=== PATIENT | female | born 1930 | race Caucasian/White ===

== ENCOUNTER 2018-05-21 14:03 | Inpatient (IN) ==
[2018-05-21] MEDS ORDERED: ZOFRAN IV PRN (16:22)
[2018-05-21] MEDS ORDERED: ZOSYN 3.375 GM in NS 50 ML IV SCH (16:30)
[2018-05-21] MEDS ORDERED: VANCOMYCIN IV PER PHARMACY MISC SCH (16:30)
[2018-05-21 17:25] LABS: AGAP 14; CHLORIDE 106 mmol/L (98-107); GLUCOSE 127 mg/dL (70-104); POTASSIUM 3.6 mmol/L (3.5-5.1); SODIUM 142 mmol/L (136-145); TCO2 22 mmol/L (25-35)
[2018-05-21 17:26] LABS: ALB/GLOB RATIO 0.9; ALBUMIN 2.7 g/dL (3.5-5.0); ALKALINE PHOSPHATASE 109 U/L (32-104); BUN 15 mg/dL (8-22); CALCIUM 8.3 mg/dL (8.8-10.2); COSMO 286; CREATININE 0.7 mg/dL (0.5-0.9); ESTIMATED GFR > 60; GOT 21 U/L (10-30); GPT 8 U/L (10-36); MAGNESIUM 1.8 mg/dL (1.5-2.7); TOTAL BILIRUBIN 0.24 mg/dL (0.20-1.00); TOTAL PROTEIN 5.7 g/dL (6.3-8.3)
[2018-05-21 17:53] LABS: BASO# 0.01 X1000 (0.0-0.2); BASO% 0.1 % (0.0-0.8); EOS# 0.02 X1000 (0.0-0.7); EOS% 0.1 % (0.0-10.0); HEMATOCRIT 30.3 % (37.0-47.0); HEMOGLOBIN 9.5 g/dL (12.0-16.0); LYMPH# 0.93 X1000 (1.2-3.4); LYMPH% 5.9 % (20.5-51.1); MCH 31.5 PG (27-31); MCHC 31.4 g/dL (33-37); MCV 100.3 FL (81-99); MONO# 1.49 X1000 (0.11-0.59); MONO% 9.4 % (1.7-9.3); MPV 9.1 FL (7.4-10.4); NEUT# 13.35 X1000 (1.4-6.5); NEUT% 84.5 % (42.2-75.2); PLT 270 X1000 (130-400); RBC 3.02 XMIL (4.2-5.4); RDW 13.4 % (11.5-14.5)
[2018-05-21 18:07] LABS: INR 1.04; PROTIME 14.5 Seconds (11.0-16.0)
[2018-05-21 18:08] LABS: PTT 31.9 Seconds (22.3-41.8)
--- NOTE | 2018-05-21 18:19 | CONSULTATION ---
DATE OF CONSULTATION: 05/21/2018 HISTORY: Ms. Darden is seen for left knee pain. She was seen by my partner Dr. Novoa in the office Saturday. She is admitted to the hospital for pneumonia currently by the hospitalist. We were consulted for possible septic knee. She complains of some pain and swelling over the left knee. PHYSICAL EXAMINATION: Exam reveals a 2+ effusion over the left knee. There is some inflammation, but there is no obvious redness or warmth. She has some pain on passive motion. She is able to perform a straight leg raise. Compartments are all soft. X-rays in office records were reviewed, which showed significant DJD about the knee. She did have cultures as well as the cell count of 42,000 from the knee with positive calcium pyrophosphate crystals or pseudogout crystals. Her initial Gram stain showed no activity of any kind of organism. However, one of the cultures is showing possible gram-positive organism, which could be a contaminant versus real. Dr. Novoa withdrew roughly 60 mL of nonpurulent fluid from the knee however. ASSESSMENT: Pseudogout, left knee. PLAN: I have discussed with the patient the culture results in that she definitely has pseudogout with inflammation. The culture may be a contaminant versus real. She is currently admitted for antibiotics regarding pneumonia, which would cover her knee as well. We will check her again tomorrow, and if there is ongoing question we will consider repeat aspiration of the knee. Given the nature of the fluid, I think it is probably more likely that it was a flare-up of pseudogout. cc: Tomy Dugan MD
[2018-05-21 18:52] LABS: BANDS 1 % (0-1); LYMPHS 11 % (21-51); MONO 6 % (1-9); SEGS 82 % (42-75)
[2018-05-21] MEDS ORDERED: VANCOMYCIN 1,500 MG in NS 250 ML IV ONE (19:00)
--- NOTE | 2018-05-21 19:07 | HISTORY AND PHYSICAL ---
Patient is a direct admit from Dr. Milagro Tolentino. CHIEF COMPLAINT: Right lower lobe pneumonia, left knee questionable septic arthritis. HISTORY OF PRESENT ILLNESS: Ms. Darden is an 87-year-old female who carries a past medical history of anxiety disorder, cardiac dysrhythmia status post pacemaker, essential hypertension, GERD, who has been having subjective fever and chills since last . She went to see her PCP for complaints of left knee pain. She had been not able to walk on her knee since Saturday. She was [facility] to [facility] for evaluations for concern for septic arthritis. She was seen by Dr. Novoa, who removed fluid from her knee. Labs at Dr. Milagro Tolentino;s office showed a white count of 2000 and elevated sedimentation rate. They called and spoke with Dr. Novoa who was leaning more toward a pseudogout, but not septic arthritis. Secondary to her elevated white count, they sent her for chest x-ray that shows a right basilar infiltrate. She was placed on p.o. Levaquin. The daughter was called today to let them know that there was something growing in her cultures. It is showing gram-positive cocci. She did report a right upper quadrant pain that was brief in nature and only occurred one time. It only lasted for a few seconds, and it was resolved and has not return. She denies any shortness of breath. No nausea/ vomiting, diarrhea, or chest pain. No urinary frequency. No dysuria. She did complain of some slight feelings of constipation secondary to not really having an appetite over the last few days and not being able to get up and be mobile. She was seen by Dr. Dugan. They may drain her knee again tomorrow, and they will continue to follow her cultures. We will continue to cover her for gram positives and gram negatives and change antibiotics accordingly. REVIEW OF SYSTEMS: A 14 point review of systems was completely negative except for those mentioned in HPI. PAST MEDICAL HISTORY: Anxiety, cardiac dysrhythmia status post pacemaker, essential hypertension, GERD. PAST SURGICAL HISTORY: A mole removed a few weeks ago, recent drain to her left knee on Saturday with Dr. Novoa. SOCIAL HISTORY: She lives alone in [place]. She is cared for by her daughter who lives close by. She has a son who lives in [place]. She is retired from work. She recently lost her ; she is a . She gets around with a cane. She has a lift chair at home. No alcohol or illicit drug use. FAMILY HISTORY: Mother from pneumonia. She also had cancer. Renal disease in her father. Diabetes in her sister. A brother with prostate cancer. ALLERGIES: No known drug allergies. HOME MEDICATIONS: 1. Levofloxacin 500 mg p.o. daily which we will hold. 2. Tylenol Arthritis 650 mg p.o. b.i.d. 3. Celebrex 200 mg p.o. daily. 4. Lorazepam 0.5 mg p.o. q.p.m. 5. Toprol-XL 25 mg p.o. daily. 6. Centrum Silver 1 each p.o. daily. 7. Prilosec 10 mg p.o. daily. PHYSICAL EXAMINATION: VITAL SIGNS: Temperature is 98 degrees, heart rate 77, respirations 18, blood pressure 153/79, O2 is 96% on room air. GENERAL: Ms. Darden is a pleasant 87-year-old female, lying in the bed in no acute distress. HEENT: Atraumatic, normocephalic. PERRL. NECK: Supple. Trachea midline. CARDIOVASCULAR: S1, S2 appreciated. No murmurs, gallops, rubs noted. RESPIRATORY: Lung sounds clear. Chest excursion. Nonlabored breathing. No rhonchi, rales, or crackles heard. GASTROINTESTINAL: Soft, nontender, nondistended. Positive bowel sounds 4 quadrants. NEUROLOGICAL: No focal deficits were noted. SKIN: Appears to be warm, dry, and intact. She does have some swelling without redness to her left knee. DIAGNOSTIC STUDIES: Diagnostics and laboratory data pending from our facility. She does have a chest x-ray that was done yesterday that showed a right basilar infiltrate. Latest laboratory data from 05/19/2018 shows a sodium 140, potassium 3.7, BUN of 33, creatinine of 0.7. Uric acid of 9.1. CBC showed a white count of 20, hemoglobin 9, hematocrit 31, platelet count of 224. We will repeat her labs and diagnostics. C-reactive protein quantifier was 234.10. ASSESSMENT AND PLAN: 1. Right basilar infiltrate. We will continue with IV antibiotics, bronchodilators, aggressive pulmonary toilet. Repeat chest x-ray in the a.m. 2. Septic arthritis versus pseudogout. However, cultures are coming back [facility] from where she had it drained on Saturday. We will go ahead and cover for gram-negative and gram- positive. Change antibiotics accordingly. We have consulted Dr. Dugan. He seen and evaluated the patient. They may recommend draining tomorrow, and we will continue to follow. 3. Essential hypertension. 4. Cardiac dysrhythmia status post pacemaker. We will continue to monitor on telemetry. 5. Generalized anxiety disorder. We will continue her home Ativan. 6. Arthritis pain. We will continue her Tylenol for her arthritis pain. Further recommendations to follow physician evaluation, laboratory, and diagnostic data. Dictated by MT Guerra for Jesse Asher MD Patient seen and examined by me face to face, all the laboratory, vitals signs and images were reviewed, patient presented to the emergency department with chills and left knee pain, there is a positive knee culture and blood culture, she is not complaining of shortness of breath or cough even though she has a lung infiltrate , she has been placed on antibiotics, ID department and orthopedic surgery department will be consulted, I agree with the PLEATER's assessment and plan, Jesse Araujo MD. cc: MD Tracey Dowd MD Lindsay Smith Omar J. Sosa-Chirinos, MD [facility]
[2018-05-21] MEDS: ATIVAN PO SCH (21:14)
[2018-05-21] MEDS: TYLENOL ARTHRITIS PO SCH (21:14)
[2018-05-21] MEDS: COLCRYS PO SCH (21:14)
[2018-05-22] MEDS: PRILOSEC PO SCH (06:27)
[2018-05-22 06:35] LABS: BASO# 0.02 X1000 (0.0-0.2); BASO% 0.1 % (0.0-0.8); EOS# 0.02 X1000 (0.0-0.7); EOS% 0.1 % (0.0-10.0); HEMATOCRIT 28.4 % (37.0-47.0); IMM GRAN% 0.7 % (0.0-0.5); LYMPH# 0.83 X1000 (1.2-3.4); LYMPH% 5.8 % (20.5-51.1); MCH 30.6 PG (27-31); MCHC 31.7 g/dL (33-37); MCV 96.6 FL (81-99); MONO# 1.31 X1000 (0.11-0.59); MONO% 9.2 % (1.7-9.3); MPV 8.9 FL (7.4-10.4); NEUT# 11.94 X1000 (1.4-6.5); NEUT% 84.1 % (42.2-75.2); PLT 295 X1000 (130-400); RBC 2.94 XMIL (4.2-5.4); RDW 13.2 % (11.5-14.5); WBC 14.22 X1000 (4.8-10.8)
[2018-05-22 06:48] LABS: AGAP 9; ALB/GLOB RATIO 0.7; ALBUMIN 2.5 g/dL (3.5-5.0); ALKALINE PHOSPHATASE 101 U/L (32-104); BUN 20 mg/dL (8-22); CALCIUM 9.2 mg/dL (8.8-10.2); CHLORIDE 107 mmol/L (98-107); COSMO 286; CREATININE 0.6 mg/dL (0.5-0.9); ESTIMATED GFR > 60; GLUCOSE 96 mg/dL (70-104); GOT 18 U/L (10-30); GPT 7 U/L (10-36); POTASSIUM 3.1 mmol/L (3.5-5.1); SODIUM 142 mmol/L (136-145); TCO2 26 mmol/L (25-35); TOTAL BILIRUBIN 0.36 mg/dL (0.20-1.00); TOTAL PROTEIN 6.2 g/dL (6.3-8.3)
[2018-05-22] MEDS ORDERED: KLOR-CON PO ONE (07:03)
--- NOTE | 2018-05-22 07:40 | EKG Report ---
Test Performed on : 05/22/2018 07:17:12 AM Test Reason : hx cardiac dysrhythmia Blood Pressure : / mmHG Vent. Rate : 083 BPM Atrial Rate : 083 BPM P-R Int : 132 ms QRS Dur : 210 ms QT Int : 470 ms P-R-T Axes : 023 -71 104 degrees QTc Int : 552 ms Atrial-sensed ventricular-paced rhythm Abnormal ECG When compared with ECG of 21-MAY-2018 18:20, (Unconfirmed) premature ventricular complexes. are no longer present Vent. rate has increased BY 4 BPM Confirmed by Joseph Perkins MD ([id number]) on 05/22/2018 12:22:26 PM
--- NOTE | 2018-05-22 07:56 | EKG Report ---
Test Performed on : 05/21/2018 6:20:05 PM Test Reason : No pacing and 3rd block Blood Pressure : / mmHG Vent. Rate : 079 BPM Atrial Rate : 079 BPM P-R Int : 124 ms QRS Dur : 148 ms QT Int : 430 ms P-R-T Axes : 016 -73 -49 degrees QTc Int : 493 ms Atrial-sensed ventricular-paced rhythm with occasional premature ventricular complexes. Abnormal ECG When compared with ECG of 25-OCT-2014 13:04, Electronic ventricular pacemaker has replaced Sinus rhythm. Vent. rate has increased BY 43 BPM Confirmed by Joseph Perkins MD ([id number]) on 05/22/2018 12:20:58 PM
[2018-05-22] MEDS: CELEBREX PO SCH (08:56)
[2018-05-22] MEDS: CENTRUM SILVER PO SCH (08:57)
[2018-05-22] MEDS: TOPROL XL PO SCH (08:57)
[2018-05-22] MEDS: TYLENOL ARTHRITIS PO SCH ×2 (08:57→20:10)
[2018-05-22] MEDS: COLCRYS PO SCH ×2 (08:57→20:10)
--- NOTE | 2018-05-22 09:47 | Diag Imaging Result Doc PS360 ---
CHEST-2 VIEWS - 05/22/2018 INDICATION: PNA COMPARISON: 05/20/2018 FINDINGS: Stable left-sided dual-chamber pacemaker in good position. Stable significant cardiomegaly. There is stable to slight worsening infiltrate in the right lung base. There is worsening in a small right basilar pleural effusion. Trace left basilar pleural effusion appears stable. IMPRESSION: Worsening right basilar infiltrate and small pleural effusion. Cardiomegaly and pulmonary vascular congestion. Electronically signed by Torrey Langford 05/22/2018 9:45 AM
[2018-05-22] MEDS ORDERED: ROCEPHIN 1 GM in NS 50 ML IV SCH (10:15)
[2018-05-22] MEDS ORDERED: AMPICILLIN IV SCH (11:45)
[2018-05-22] MEDS ORDERED: NS IV SCH (11:45)
[2018-05-22] MEDS ORDERED: MBX SOLUTION MT SCH (12:45)
[2018-05-22] MEDS: NS IV SCH ×3 (12:54→23:49)
[2018-05-22] MEDS: AMPICILLIN IV SCH ×3 (12:54→23:49)
--- NOTE | 2018-05-22 13:05 | INFECTIOUS DISEASE CONSULT REP ---
DATE: 05/22/2018 CONCLUSION: Patient has an enterococcal bacteremia, septic knee arthritis, pneumonia, and she could well have endocarditis involving heart valve, and she could also have infection of her pacemaker with Enterococcus. The patient has an E coli urinary tract infection , but this is asymptomatic. The patient may have an immunoglobulin deficiency. The patient has a sore tongue. It is more erythematous than usual. I am uncertain as to what is happening with it. It could be that she is developing thrush and that it has not just had time yet to turn white RECOMMENDATIONS: I have discontinued the vancomycin and Rocephin and have put the patient on high- dose ampicillin, namely 2 g IV every 6 hours. I am going to discuss with Dr. Dugan about the patient's septic knee. I have ordered an echocardiogram. I have also ordered immunoglobulin levels. As mentioned above, the urinary tract infection is asymptomatic and therefore does not require antibiotic treatment, but it turns out that the antibiotic I am using to treat the Enterococcus, namely ampicillin, also will cover the Escherichia coli urinary tract infection. The patient has had dental work done in the past few months. DISCUSSION: The patient started having fever and chills approximately a week ago. Also she noticed that her left knee was swollen. The patient has been admitted to the hospital. She is growing Enterococcus in her bloodstream and also from the left knee. The patient's chest x-ray shows that there is worsening right lower lobe infiltrate with a small pleural effusion that could be due to pneumonia. Also the left-sided infiltrate is getting better and the left lower lobe infiltrate could be due to pulmonary venous congestion. DIAGNOSTIC STUDIES: The patient's CBC shows a white count of 14,220, hemoglobin 9, platelet count 295,000. Creatinine is 0.6, GFR is greater than 60. Liver function studies are normal. PAST MEDICAL HISTORY/REVIEW OF SYSTEMS: Eyes and ears: She can see and hear okay. The patient also has had a sore tongue for the past week. Neck: No stiffness. Pulmonary : No cough or shortness of breath. Bone joints muscle: See Present Illness. Endocrine: She is not a diabetic, and she does not have thyroid disease. Gastrointestinal: The patient, as mentioned above, has been anorectic. She has not had diarrhea or vomiting. Neurologic : The patient has a droop of her left eyelid. She does not have seizures. Musculoskeletal: She does have knee pain secondary to arthritis. [employer] HISTORY: She is a 2, para 2, AB 0. PREVIOUS HOSPITALIZATIONS AND OPERATIONS: She has had 2 labor and deliveries, surgeries on her foot which was fractured. She has had placement of a left-sided pacemaker. MEDICAL HISTORY: Positive for hypertension and bradycardia which required placement of a pacemaker. The patient also has osteoarthritis. Gastroesophageal reflux disease. INFECTIOUS DISEASE HISTORY: Positive for UTI. Negative for pneumonia. FAMILY HISTORY: Positive for diabetes mellitus and myocardial infarction. SOCIAL HISTORY: The patient lives in [place]. She is a . She lives alone. She does not have any pets. She does not drink alcoholic beverages or abuse drugs or smokes cigarettes. MEDICATIONS TAKEN AT HOME: Include Tylenol arthritis, celecoxib, Levaquin, lorazepam, metoprolol, multivitamins, and Prilosec. PHYSICAL EXAMINATION: Vital Signs: Temperature is 99.7 degrees, pulse 79, respirations 16, blood pressure 140/65. Weight: Patient weighs 129 pounds. General: This is an ill- appearing elderly female. She is in no acute distress. Head, eyes, ears, nose, and throat: She can hear my spoken words and see near objects. She has a droop of her left eyelid. Her tongue is erythematous. Neck: No meningismus. Lungs: Clear to auscultation. Cardiovascular: Regular heart rate. Thorax: Patient has a pacemaker on the left side. The site is not swollen or red. Abdomen: Soft and nontender. Lungs: Clear to auscultation. Bones, joints, muscles: The left knee is swollen. Neurologic: Patient is awake. She can move her extremities. There is no tremor. Her memory as regarding her medical history is intact. Integument: No rash. Thank you for the consult. cc: Dano Spence MD [facility]
[2018-05-22] MEDS: MYCELEX TROCHE PO SCH ×2 (13:20→20:10)
--- NOTE | 2018-05-22 14:24 | PROGRESS NOTE ---
DATE: 05/22/2018 SUBJECTIVE: Ms. Darden is an 87-year-old female, who has been seen for left knee pain. On Saturday, her left knee was aspirated by Dr. Novoa in the office, in which the cultures have grown out a gram-positive organism and resulted in pseudogout. She continues to complain of pain and swelling in her left knee. OBJECTIVE: General: She is a well-developed, well-nourished female. She is alert, oriented, and cooperative with the examination. She is in no acute distress. Vital Signs: Stable. She is afebrile. Extremities: Her left knee has a 2+ effusion. She has good range of motion of her left knee with pain. Her left leg is grossly neurovascularly intact. ASSESSMENT: Left knee effusion. PLAN: I sterilely aspirated her left knee getting 30 mL of a cloudy yellow joint fluid. I sent that fluid off for culture, Gram stain and cell count. Once we get those results back, we will formulate a further treatment plan based on those results. Dictated by LEANNA Angeles for Tomy Dugan MD cc: LEANNA Angeles MD [facility]
--- NOTE | 2018-05-22 15:23 | PROGRESS NOTE ---
DATE: 05/22/2018 SUBJECTIVE: Patient is lying comfortably in bed. She is still complaining of some left knee pain and swelling. We have a positive culture from the knee that showed Enterococcal faecalis and also a positive blood culture that showed gram-positive cocci x 2. Infectious Disease Department has evaluated this patient and they have placed this patient on ampicillin every 6 hours. I will wait for the final sensitivity of the blood culture, continue with the same treatment. OBJECTIVE: Vital Signs: Temperature 98.4, pulse 78, respiratory rate 20, blood pressure 141/62. Oxygen saturation 94% on room air. HEENT: Head normocephalic. No trauma. PERRLA. Neck: Supple. No JVD. No masses. Central trachea. Chest: Clear to auscultation. No wheezing. No rales. Abdomen: Soft, nontender, nondistended. No hepatosplenomegaly. Extremities: Left knee edema and pain to mobilization and palpation. Mild redness. No cyanosis. Neurologic: The patient is alert and oriented x 3. No focal deficits. LABORATORY: WBC 14.2, hemoglobin 9, hematocrit 28.4, platelets 295,000. Sodium 142, potassium 3.1 chloride 107, bicarbonate 26, BUN 20, creatinine 0.6, glucose 96, calcium 9.2, albumin 2.5. ASSESSMENT AND PLAN: 1. Septic arthritis. We have a positive culture that showed Enterococcal faecalis. This patient has been placed on ampicillin. Infectious Disease Department following this patient closely. 2. Bacteremia. We have a positive culture that showed gram-positive cocci x 2, probably the source of infection is the knee as well, but we will wait for the final sensitivity. 3. Right basilar infiltrate. Will continue for now with these antibiotics. She is not complaining of shortness of breath, chest pain or cough. 4. Hypertension, stable. 5. Cardiac dysrhythmia status post pacemaker, continue to monitor. 6. Generalized anxiety disorder. Continue with home Ativan. 7. Likely pseudogout on the left knee. Continue with colchicine. 8. Hypokalemia. I will replace the potassium. cc: Jesse Asher MD
[2018-05-22 15:30] LABS: BODY FLUID SOURCE SYNOVIAL FLUID; WBC BF 13940 /cumm
[2018-05-22 15:31] LABS: MONOS 2 %; POLYS 98 %
[2018-05-22] MEDS: ATIVAN PO SCH (20:10)
[2018-05-23] MEDS: MYCELEX TROCHE PO SCH ×4 (02:08→16:01)
[2018-05-23] MEDS: NS IV SCH ×3 (05:33→18:09)
[2018-05-23] MEDS: PRILOSEC PO SCH ×2 (05:33→06:52)
[2018-05-23] MEDS: AMPICILLIN IV SCH ×3 (05:33→18:09)
[2018-05-23 06:13] LABS: BASO# 0.03 X1000 (0.0-0.2); BASO% 0.2 % (0.0-0.8); EOS# 0.02 X1000 (0.0-0.7); EOS% 0.1 % (0.0-10.0); HEMATOCRIT 30.7 % (37.0-47.0); HEMOGLOBIN 9.6 g/dL (12.0-16.0); IMM GRAN# 0.12 X1000 (0.0-0.04); IMM GRAN% 0.8 % (0.0-0.5); MCH 30.4 PG (27-31); MCHC 31.3 g/dL (33-37); MCV 97.2 FL (81-99); MONO# 1.52 X1000 (0.11-0.59); MONO% 9.6 % (1.7-9.3); MPV 8.7 FL (7.4-10.4); NEUT# 13.03 X1000 (1.4-6.5); NEUT% 82.3 % (42.2-75.2); PLT 323 X1000 (130-400); RBC 3.16 XMIL (4.2-5.4); RDW 13.5 % (11.5-14.5); WBC 15.82 X1000 (4.8-10.8)
[2018-05-23 06:31] LABS: AGAP 11; BUN 20 mg/dL (8-22); CHLORIDE 106 mmol/L (98-107); COSMO 282; CREATININE 0.6 mg/dL (0.5-0.9); ESTIMATED GFR > 60; GLUCOSE 100 mg/dL (70-104); POTASSIUM 4.3 mmol/L (3.5-5.1); SODIUM 140 mmol/L (136-145); TCO2 23 mmol/L (25-35)
--- NOTE | 2018-05-23 08:05 | PROGRESS NOTE ---
DATE: 05/23/2018 SUBJECTIVE: Ms. Darden is an 87-year-old female with positive cultures from her knee use that match the cultures in her blood. She is continuing to have a elevated white count. She complains of continued pain and swelling of her left knee. OBJECTIVE: She is a well-developed, well-nourished female. She is alert and oriented and cooperative with exam. She does have an effusion of her left knee. Her left knee is mildly warm. Her knee is otherwise stable to exam. ASSESSMENT: Left septic knee. PLAN: Today we are going to plan on doing an arthroscopic lavage of her knee this afternoon. We have made her n.p.o. I have discussed this with her. I have discussed with her the risks, benefits, and alternatives of surgery including, but not limited to bleeding, nerve damage, infection, risk from anesthesia, up to and including loss of limb, life, and other imponderables. She voices understanding. All questions were answered. No guarantees were given. She requested to proceed as planned with scheduled surgery this afternoon. cc: Escobar Wise MD
[2018-05-23] MEDS: TOPROL XL PO SCH (09:43)
[2018-05-23] MEDS: CENTRUM SILVER PO SCH (10:43)
[2018-05-23] MEDS: COLCRYS PO SCH ×2 (10:43→21:45)
[2018-05-23] MEDS: CELEBREX PO SCH (10:43)
[2018-05-23] MEDS ORDERED: NEOSPORIN G.U. IRRIGANT ONE (13:03)
[2018-05-23] MEDS ORDERED: DIPRIVAN 1% ONE ×2 (13:24→14:09)
[2018-05-23] MEDS ORDERED: ROBINUL ONE (13:24)
[2018-05-23] MEDS ORDERED: XYLOCAINE-MPF 2% ONE (13:24)
[2018-05-23] MEDS ORDERED: VERSED ONE (13:30)
[2018-05-23] MEDS ORDERED: MARCAINE 0.5% PF ONE (13:49)
--- NOTE | 2018-05-23 14:03 | INFECTIOUS DISEASE PROGRESS NO ---
DATE: 05/23/2018 PRESENT ILLNESS: Ms. Martinez is being treated for enterococcal bacteremia, the origin of which is her left knee septic arthritis. She has had an echocardiogram which has been ordered to rule out endocarditis. She is also has an oral candidiasis. There is a worsening right basilar infiltrate on chest x-ray which may represent pneumonia. MEDICATIONS: She is receiving ampicillin 2 g IV every 6 hours and Mycelex Juan A by mouth every 6 hours. PHYSICAL EXAMINATION: Vital Signs: Temperature is 98.3 degrees, pulse rate 92 , respiratory rate 20, blood pressure 171/75, O2 saturation is 92% on room air. General: This is an elderly, chronically ill-appearing female. She is sitting up in a chair with her legs elevated, currently in no acute distress. HEENT: Atraumatic, normocephalic. Oral mucous membranes are erythematous and dry. Conjunctivae are pale. Neck: Supple. Trachea is midline. Cardiovascular: Heart rate and rhythm are regular with pacer spikes on the monitor and occasional ectopic beats. Respiratory: Lung sounds are clear in the upper lobes, diminished in the bases with some mild rales. Abdomen: Soft, round, and mildly tender on palpation. Bowel sounds are active. Neurologic: She is awake, alert, and oriented. Generalized weakness is noted but she is able to get up with assistance. Integumentary: Skin is warm, dry, and pale. She does have an effusion with some warmth to her left knee. LABORATORY AND X-RAY: Today her white count is 15.82, hemoglobin 9.6, platelet count 323,000. Creatinine is 0.6, estimated GFR is greater than 60. Immunoglobulin levels show an IgA of 333 and an IgG of 866. No imaging reports today. ASSESSMENT AND PLAN: Ms. Martinez is being treated for a left knee septic arthritis with an associated enterococcal bacteremia. There is also a possible pneumonia as well as an oral candidiasis. She also has a leukocytosis and we are awaiting echocardiogram results to check for endocarditis. At this point, we will continue her ampicillin as ordered as well as the Mycelex Juan A. She is awaiting surgery this afternoon. The plan is for her to have an arthroscopic lavage of her left knee. These plans have been discussed with and recommended by Dr. Spence. COMORBIDITIES: For Ms. martinez include that she is elderly with pacemaker, gastroesophageal reflux disease, and osteoarthritis. Dictated by MT Lanier for Dano Spence MD This chart was documented by, MT Lanier and accurately reflects the services performed, treatment plan and medical decisions as attested by the providers signature Dano Spence MD. cc: Dano Spence MD [facility]
[2018-05-23] MEDS ORDERED: OFIRMEV 1000 MG/ISOTONIC SOLN 1,000 MG/100 ML BOTTLE ONE (14:21)
[2018-05-23] MEDS ORDERED: DECADRON ONE (14:21)
--- NOTE | 2018-05-23 14:34 | ECHO REPORT ---
ORDER DATE: 05/22/2018 ECHOCARDIOGRAM: INDICATION: Endocarditis, infected pacemaker leads. FINDINGS: 1. The right atrium appears normal in size. 2. Linear artifact consistent with device lead is noted in the right heart chambers. 3. Mild tricuspid regurgitation. RV systolic pressure of 46. 4. Normal RV size and systolic function. 5. Trace pulmonic insufficiency. 6. Mild left atrial enlargement at 4 cm. 7. No mitral valve prolapse. Mild to moderate mitral regurgitation. 8. Normal LV size. End-diastolic dimension of 4.3 cm. Normal wall thicknesses with posterior and interventricular septal wall thickness of 1 cm each. Mild reduction in LV systolic function with an estimated EF in the 40 to 45 percent range. This is consistent with previous echo in November 2016. 9. Aortic valve opens well. It is sclerotic, but does not appear to be stenotic. There is mild insufficiency. 10. Aorta appears normal in visualized segments. 11. No pericardial effusion seen. cc: MD Dano Macdonald MD
[2018-05-23] MEDS: TYLENOL ARTHRITIS PO SCH ×2 (15:37→21:45)
[2018-05-23] MEDS: NORCO-5 PO PRN ×2 (15:38→19:39)
--- NOTE | 2018-05-23 17:17 | PROGRESS NOTE ---
DATE: 05/23/2018 SUBJECTIVE: Patient is lying comfortably in bed. She is still complaining of left knee pain. Likely, she has oral candidiasis. She has a positive culture from the knee that showed enterococcal faecalis and also from the blood. She has been treated with ampicillin. Infectious Disease Department on board. OBJECTIVE: Vital Signs: Temperature 99, pulse 90, respiratory rate 20, blood pressure 162/72, oxygen saturation 94% on room air. HEENT: Head normocephalic. No trauma. PERRLA. Neck: Supple. No JVD. No masses. Central trachea. Chest: Clear to auscultation. No wheezing. No rales. Abdomen: Soft, nontender, nondistended. No hepatosplenomegaly. Extremities: Left knee edema and pain to mobilization and palpation. No cyanosis. Neurological: The patient is alert and oriented x3. No focal deficits. LABORATORY: WBC 15.8, hemoglobin 9.6, hematocrit 30.7, platelets 323. Sodium 140, potassium 4.3, chloride 106, bicarbonate 23, BUN 20, creatinine 0.6, glucose 100, calcium 9. ASSESSMENT AND PLAN: 1. Septic arthritis. We have a positive culture that showed enterococcal faecalis. The patient has been placed on ampicillin. Infectious Disease Department on board. 2. Bacteremia due to enterococcus. Likely coming from the knee infection. Continue with same treatment. 3. Oral candidiasis. This patient has been placed on treatment. 4. Right basilar infiltrate. Probably pneumonia. This patient is not complaining of shortness of breath or chest pain. We will continue with same management. 5. Hypertension, stable. 6. Cardiac dysrhythmia, status post pacemaker, continue to monitor. 7. Generalized anxiety disorder. Continue with home Ativan. 8. Likely pseudogout of the left knee. Continue with colchicine for now. 9. Hypokalemia, resolved. 10. Resuscitation status. This patient is Full Code. I have discussed the resuscitation status with the family and the patient and she has decided to be Full Code. She is completely alert and oriented x3, and able to make decisions. cc: Jesse Asher MD
--- NOTE | 2018-05-23 17:45 | INFECTIOUS DISEASE PROGRESS NO ---
DATE: 05/23/2018 PRESENT ILLNESS: The patient has an enterococcal septic left knee arthritis with an associated bacteremia and pneumonia. The patient also has oral candidiasis. MEDICATIONS: The patient is on ampicillin 2 g IV every 6 hours. This is day 1 of treatment with that antibiotic. The patient has been switched from Mycelex troches to nystatin swish and swallow 5 mL every 6 hours. PHYSICAL EXAMINATION: Vital Signs: Temperature is 99 degrees, pulse 84, respirations 20, blood pressure 154/71. General: This is an a somewhat ill-appearing, elderly female. She is in no acute distress, however. Head/eyes/ears/nose/throat: She has ptosis of the left eyelid. She can hear my spoken words and she can see near objects. There is no drainage from the nose or ears. Neck: No meningismus. Lungs: Clear to auscultation. Cardiovascular: Heart rate is regular. Abdomen: Soft and nontender. Thorax: Patient has a pacemaker present on the left side. The site is not erythematous or swollen. Neurologic: The patient has just returned from surgery, so she is a little bit lethargic. However, she was able to talk and she could move her extremities. Integument: No rash noted. LAB AND X-RAY: Echocardiogram showed no vegetations. CBC shows a white count of 15,820, hemoglobin 9.6, and platelet count 323,000. Creatinine is 0.6. GFR is greater than 60. Immunoglobulin levels are normal. ASSESSMENT AND PLAN: The patient has an enterococcal septic knee arthritis with an associated bacteremia and possibly pneumonia as well. She also has oral candidiasis. My plan is to continue ampicillin 2 g IV every 6 hours for 6 weeks. I am going to repeat her lab and chest x-ray tomorrow. COMORBIDITIES: She is elderly, she has a pacemaker, gastroesophageal reflux disease and osteoarthritis. cc: Dano Spence MD [facility]
[2018-05-23] MEDS ORDERED: VANCOMYCIN 1,250 MG in NS 250 ML IV SCH (18:00)
[2018-05-23] MEDS: MYCOSTATIN SUSP PO SCH (18:09)
--- NOTE | 2018-05-23 20:21 | OPERATIVE NOTE ---
PROCEDURE DATE: 05/21/2018 PREOPERATIVE DIAGNOSIS: Left knee infection, left septic knee. POSTOPERATIVE DIAGNOSIS: Left knee infection, left septic knee. PROCEDURE: Arthroscopic lavage of left knee with arthroscopic debridement. ANESTHESIA: General. SURGEON: Escobar Wise MD. ASSEMBLER BONDING: Joselito New RN. COMPLICATIONS: None. BLOOD LOSS: Minimal. TOURNIQUET TIME: Approximately 30 minutes. DRAINS: Hemovac x1. DESCRIPTION OF PROCEDURE: The patient was brought to the operative suite and placed in the supine position. After satisfactory administration of monitored anesthesia care, a well-padded tourniquet was placed on the left proximal thigh, and the left lower extremity was prepped and draped in the usual sterile fashion. Through the usual suprapatellar inflow portal and medial and lateral parapatellar arthroscopy portals, the knee was serially examined and was found to have significant arthritis in her knee and the purulent material. The purulent material was taken for cell count and Gram stain, culture and sensitivity. It did not look frankly purulent, but it was some cloudy, normal-appearing joint fluid. There were some crystal deposits inside of her knee, consistent with either gout, previous steroid injections, or pseudogout. Using a shaver, the knee was thoroughly cleaned, removing some loose articular pieces and some torn cartilage. She had [id number] wear of all 3 compartments. The arthroscopy instruments were removed. The knee was copiously irrigated with 9 L of normal saline containing irrigant and 1 L of Vashe irrigation. A drain was placed in her knee, exiting superolaterally. The incisions were closed with interrupted nylon. The incisions and knee were injected with Marcaine, and a sterile dressing was applied. The patient tolerated the procedure well without complications. At the end of the procedure, all counts were correct x2. The patient was transferred to the recovery room in stable condition. cc: Escobar Wise MD
[2018-05-23] MEDS: ATIVAN PO SCH (21:46)
[2018-05-23] MEDS: PERIDEX MT SCH (21:48)
[2018-05-24] MEDS: MYCOSTATIN SUSP PO SCH ×5 (00:03→20:58)
[2018-05-24] MEDS: AMPICILLIN IV SCH ×4 (00:10→18:13)
[2018-05-24] MEDS: NS IV SCH ×4 (00:10→18:13)
[2018-05-24 06:00] LABS: HEMATOCRIT 28.5 % (37.0-47.0); HEMOGLOBIN 9.1 g/dL (12.0-16.0); IMM GRAN# 0.11 X1000 (0.0-0.04); IMM GRAN% 0.7 % (0.0-0.5); LYMPH# 0.56 X1000 (1.2-3.4); LYMPH% 3.3 % (20.5-51.1); MCH 30.6 PG (27-31); MCHC 31.9 g/dL (33-37); MONO# 0.79 X1000 (0.11-0.59); MONO% 4.7 % (1.7-9.3); MPV 8.8 FL (7.4-10.4); NEUT% 91.3 % (42.2-75.2); PLT 335 X1000 (130-400); RBC 2.97 XMIL (4.2-5.4); RDW 13.3 % (11.5-14.5); WBC 16.86 X1000 (4.8-10.8)
[2018-05-24 06:24] LABS: AGAP 11; BUN 23 mg/dL (8-22); CALCIUM 8.7 mg/dL (8.8-10.2); CHLORIDE 105 mmol/L (98-107); COSMO 281; CREATININE 0.6 mg/dL (0.5-0.9); ESTIMATED GFR > 60; GLUCOSE 136 mg/dL (70-104); POTASSIUM 4.3 mmol/L (3.5-5.1); SODIUM 138 mmol/L (136-145); TCO2 22 mmol/L (25-35)
[2018-05-24] MEDS: PRILOSEC PO SCH (07:03)
[2018-05-24] MEDS: TYLENOL ARTHRITIS PO SCH ×2 (09:19→20:59)
[2018-05-24] MEDS: CELEBREX PO SCH (09:19)
[2018-05-24] MEDS: PERIDEX MT SCH ×2 (09:20→20:58)
[2018-05-24] MEDS: COLCRYS PO SCH ×2 (09:20→20:59)
[2018-05-24] MEDS: TOPROL XL PO SCH (09:20)
[2018-05-24] MEDS: CENTRUM SILVER PO SCH (09:20)
--- NOTE | 2018-05-24 09:43 | PROGRESS NOTE ---
DATE: 05/24/2018 SUBJECTIVE: Ms. Darden is an 87-year-old female who is postoperative day 1 from an arthroscopic lavage and debridement of her left knee arthroscopically. She has no new complaints. OBJECTIVE: She is a well-nourished, well-developed female. She is alert, oriented, and cooperative with the examination. Her white count is actually increased today at 16.8. Her Gram stain from her surgery showed just 1+ white cells. The cultures are pending. She has had no output from her drain. ASSESSMENT: Status post left knee arthroscopic lavage. PLAN: We removed her drain. I am still not certain that she has a knee infection. However, we will await the cultures. In the meantime, she can continue to weight bear as tolerated and use her knee as tolerated. We will change her dressing tomorrow. cc: Escobar Wise MD
--- NOTE | 2018-05-24 10:28 | Diag Imaging Result Doc PS360 ---
EXAM: CHEST-1 VIEW HISTORY: pneumonia TECHNIQUE: Chest single view COMPARISON: 05/22/2018 FINDINGS: There are small bilateral pleural effusions with basilar atelectasis and infiltrates. Findings are more prominent in the left lung base than they were on the prior study. Cardiomegaly remains. There is a left-sided pacemaker. The upper and mid lungs remain clear. IMPRESSION: Interval worsening. Electronically signed by Hermes Melgar 05/24/2018 10:26 AM
--- NOTE | 2018-05-24 10:30 | PROGRESS NOTE ---
DATE: 05/24/2018 SUBJECTIVE: The patient is lying comfortably in bed. She is not complaining of pain today. No acute events overnight. She is status post arthroscopy of the left knee. OBJECTIVE: Vital signs: Temperature is 97.7, pulse 84, respiratory rate 16, blood pressure 151/77, oxygen saturation is 94% on room air. HEENT: Head is normocephalic and atraumatic. PERRLA. Neck: Supple. No JVD. No masses. Central trachea. Chest is clear to auscultation. No wheezing. No rales. Abdomen is soft, nontender and nondistended. No hepatosplenomegaly. Extremities: Left knee edema and pain to mobilization and palpation, covered with a new dressing. No cyanosis. She has a drain with a little bit of serosanguineous material. Neurologic: The patient is alert and oriented x3. No focal deficits. DIAGNOSTIC DATA: WBC is 16.8, hemoglobin 9.1, hematocrit 28.5, platelets 335. Sodium is 138, potassium 4.3, chloride 105, bicarbonate 22, BUN is 23, creatinine 0.6, glucose 136, calcium 8.7. ASSESSMENT AND PLAN: 1. Septic arthritis. We have a positive culture that showed Enterococcal faecalis. The patient has been placed on ampicillin. Infectious Disease Department is onboard. 2. Bacteremia due to enterococcus as well. Continue with same treatment. 3. Oral candidiasis. Continue with the same management. 4. Right basilar infiltrate, probably pneumonia. The patient does not complain of shortness of breath or chest pain. Continue with same treatment. 5. Hypertension, stable. 6. Cardiac dysrhythmia. Status post pacemaker. Continue to monitor. 7. Generalized anxiety disorder. Continue with home Ativan. 8. Likely pseudogout of the left knee. Continue with colchicine for now. 9. Hypokalemia, resolved. 10.Resuscitation status. This patient is full code. Case has been discussed with the patient. This patient is status post arthroscopic lavage of the left knee with arthroscopic debridement. She tolerated the procedure well. Orthopedic Surgery Department is onboard. cc: Jesse Asher MD
[2018-05-24] MEDS: ATIVAN PO SCH (20:59)
[2018-05-25] MEDS: NS IV SCH ×4 (00:07→20:25)
[2018-05-25] MEDS: AMPICILLIN IV SCH ×4 (00:07→20:25)
[2018-05-25] MEDS: PRILOSEC PO SCH (06:21)
[2018-05-25 06:52] LABS: BASO# 0.01 X1000 (0.0-0.2); BASO% 0.1 % (0.0-0.8); EOS# 0.03 X1000 (0.0-0.7); EOS% 0.2 % (0.0-10.0); HEMOGLOBIN 9.1 g/dL (12.0-16.0); IMM GRAN% 0.7 % (0.0-0.5); LYMPH# 1.54 X1000 (1.2-3.4); LYMPH% 10.6 % (20.5-51.1); MCH 30.6 PG (27-31); MCHC 31.4 g/dL (33-37); MCV 97.6 FL (81-99); MONO% 7.6 % (1.7-9.3); MPV 8.7 FL (7.4-10.4); NEUT# 11.76 X1000 (1.4-6.5); NEUT% 80.8 % (42.2-75.2); PLT 363 X1000 (130-400); RBC 2.97 XMIL (4.2-5.4); RDW 13.7 % (11.5-14.5); WBC 14.54 X1000 (4.8-10.8)
[2018-05-25 07:04] LABS: AGAP 9; BUN 25 mg/dL (8-22); CALCIUM 8.5 mg/dL (8.8-10.2); CHLORIDE 107 mmol/L (98-107); COSMO 287; CREATININE 0.7 mg/dL (0.5-0.9); ESTIMATED GFR > 60; GLUCOSE 85 mg/dL (70-104); SODIUM 142 mmol/L (136-145); TCO2 26 mmol/L (25-35)
[2018-05-25] MEDS: PERIDEX MT SCH ×2 (09:23→21:24)
[2018-05-25] MEDS: COLCRYS PO SCH ×2 (09:23→20:25)
[2018-05-25] MEDS: MYCOSTATIN SUSP PO SCH ×4 (09:23→20:25)
[2018-05-25] MEDS: TYLENOL ARTHRITIS PO SCH ×2 (09:24→20:25)
[2018-05-25] MEDS: CENTRUM SILVER PO SCH (09:24)
[2018-05-25] MEDS: TOPROL XL PO SCH (09:24)
[2018-05-25] MEDS: CELEBREX PO SCH (09:24)
--- NOTE | 2018-05-25 10:32 | Diag Imaging Result Doc PS360 ---
EXAM: CHEST-PORTABLE - 05/25/2018 HISTORY: dyspnea TECHNIQUE: Portable chest COMPARISON: 05/24/2018 FINDINGS: There is cardiomegaly similar to prior. There is transvenous cardiac pacemaker again seen. There are bibasilar opacities which appear mildly decreased on the right and mildly increased on the left compared to prior. These apparently represent a combination of pleural fluid effusions, atelectasis, and infiltrates/edema. There is no pneumothorax identified. IMPRESSION: Little overall change compared to prior. Basilar opacities appear mildly decreased on the right and mildly increased on the left. Electronically signed by Austin Perry 05/25/2018 10:30 AM
--- NOTE | 2018-05-25 13:16 | PROGRESS NOTE ---
DATE: 05/25/2018 SUBJECTIVE: The patient is sitting on a chair at the moment of my physical exam. She is not complaining of pain, just some discomfort at the level of the left knee. As per the patient and the family, she is having more frequent bowel movements, and they are loose. I will ask for Clostridium difficile toxin and antigen to rule out Clostridium difficile colitis. OBJECTIVE: Vital Signs: Temperature 98.6 degrees, pulse 75, respiratory rate 20, blood pressure 147/70, oxygen saturation 97% on room air. HEENT: Head normocephalic. No trauma. PERRLA. Neck: Supple. No JVD. No masses. Central trachea. Chest: Clear to auscultation. No wheezing. No rales. Abdomen: Soft, nontender, nondistended. No hepatosplenomegaly. Extremities: Left knee is covered with a new dressing. No clubbing, no cyanosis. Pulses are present. Neurological: The patient is alert and oriented x3. No focal deficits. LABORATORY: WBC 14.5, hemoglobin 9.1, hematocrit 29, platelets 363,000. Sodium 142, potassium 4, chloride 107, bicarbonate 26, BUN 25 creatinine 0.7, glucose 85, calcium 8.5. ASSESSMENT AND PLAN: 1. Septic arthritis. We have a positive culture that showed enterococcal faecalis. Continue with antibiotics per Infectious Disease doctor. 2. Bacteremia also due to enterococcal faecalis. Infectious Disease is on board. 3. Oral candidiasis. Continue with the same treatment. 4. Right basilar infiltrate, probably pneumonia. This patient is not complaining of cough or shortness of breath. Continue with the same management. 5. Hypertension, stable. 6. Cardiac. Dysrhythmia. Status post pacemaker. Continue to monitor. 7. Generalized anxiety disorder. Continue with home Ativan. 8. Likely pseudogout of the left knee. Continue with colchicine for now. 9. Hypokalemia, resolved. 10. Resuscitation status. Patient is full code. 11. Loose bowel movements. I will get a Clostridium difficile toxin and antigen to rule out colitis. cc: Jesse Asher MD
--- NOTE | 2018-05-25 15:07 | INFECTIOUS DISEASE PROGRESS NO ---
DATE: 05/25/2018 PRESENT ILLNESS: The patient has enterococcal septic knee arthritis with an associated bacteremia and possible pneumonia, as well. She also has oral candidiasis. MEDICATIONS: The patient is on ampicillin 2 g IV every 6 hours. Day #1 of treatment will be the first day that the patient has repeat negative blood culture. The patient is taking nystatin for her presumed oral candidiasis. PHYSICAL EXAMINATION: Vital Signs: Temperature is 98.6, pulse 75, respirations 20, blood pressure 147/70. General: This is an elderly, ill-appearing female. She is in no acute distress, however. Head, Eyes, Ears, Nose and Throat: She has ptosis of the left eyelid. She has a few areas of white patches on her tongue. She can hear my spoken words and she can see near objects. Neck: No meningismus. Lungs: Clear to auscultation. Cardiovascular: Heart rate is regular. Abdomen: Soft, nontender. Thorax: The patient has a pacemaker on the left side. The site is not swollen or draining, and it is not tender. Neurologic: Patient is alert. She can move her extremities. There is no tremor. LAB AND X-RAY: The patient's chest x-ray shows bibasilar opacities, which could be a combination of pneumonia, pleural effusion, and atelectasis. The patient has had an echocardiogram and it did not show the presence of any vegetations. ASSESSMENT AND PLAN: The patient has enterococcal septic knee arthritis, bacteremia and possibly pneumonia, as well. I plan to treat the patient for 6 weeks because she has her knee infected and also because she has a pacemaker in place which could have become infected hematogenously. COMORBIDITIES: The patient is elderly. She has a pacemaker in place. She has gastroesophageal reflux disease and osteoarthritis. cc: Dano Spence MD
--- NOTE | 2018-05-25 16:28 | PROGRESS NOTE ---
DATE: 05/25/2018 SUBJECTIVE: Urmila Darden is an 87-year-old female who is postoperative day 2 from irrigation and debridement of her left knee arthroscopically. She has no complaints. OBJECTIVE: General: She is a well-developed, well-nourished female. She is alert, oriented, and cooperative with exam. Extremities: Her wounds are clean, dry, and intact. LABORATORY: Her cultures grew back gram-positive cocci. We are still awaiting sensitivity and specific pathogen. Her white count is down to 14.5. ASSESSMENT: Stable left knee after arthroscopy. PLAN: We are going to change her dressing today. Hopefully once we get back the culture results, we can make sure she is on the appropriate antibiotic. cc: Escobar Wise MD
[2018-05-25] MEDS: ATIVAN PO SCH (20:25)
[2018-05-26] MEDS: AMPICILLIN IV SCH ×2 (03:09→08:04)
[2018-05-26] MEDS: NS IV SCH ×2 (03:09→08:04)
[2018-05-26] MEDS: PRILOSEC PO SCH ×2 (05:39→05:44)
[2018-05-26 06:09] LABS: BASO# 0.01 X1000 (0.0-0.2); BASO% 0.1 % (0.0-0.8); EOS# 0.05 X1000 (0.0-0.7); EOS% 0.4 % (0.0-10.0); HEMOGLOBIN 9.5 g/dL (12.0-16.0); IMM GRAN# 0.11 X1000 (0.0-0.04); IMM GRAN% 0.9 % (0.0-0.5); LYMPH# 1.22 X1000 (1.2-3.4); LYMPH% 9.6 % (20.5-51.1); MCH 30.6 PG (27-31); MCHC 31.7 g/dL (33-37); MCV 96.8 FL (81-99); MONO# 1.08 X1000 (0.11-0.59); MONO% 8.5 % (1.7-9.3); MPV 8.6 FL (7.4-10.4); NEUT# 10.22 X1000 (1.4-6.5); NEUT% 80.5 % (42.2-75.2); PLT 363 X1000 (130-400); RDW 13.6 % (11.5-14.5); WBC 12.69 X1000 (4.8-10.8)
[2018-05-26 06:31] LABS: AGAP 11; BUN 20 mg/dL (8-22); CALCIUM 8.5 mg/dL (8.8-10.2); CHLORIDE 108 mmol/L (98-107); COSMO 286; CREATININE 0.5 mg/dL (0.5-0.9); ESTIMATED GFR > 60; GLUCOSE 95 mg/dL (70-104); SODIUM 142 mmol/L (136-145); TCO2 23 mmol/L (25-35)
[2018-05-26] MEDS: TOPROL XL PO SCH (08:04)
[2018-05-26] MEDS: MYCOSTATIN SUSP PO SCH ×4 (08:04→22:16)
[2018-05-26] MEDS: COLCRYS PO SCH ×2 (08:04→22:16)
[2018-05-26] MEDS: CENTRUM SILVER PO SCH (08:04)
[2018-05-26] MEDS: TYLENOL ARTHRITIS PO SCH ×2 (08:04→22:16)
[2018-05-26] MEDS: PERIDEX MT SCH ×2 (08:04→22:17)
[2018-05-26] MEDS: CELEBREX PO SCH (08:04)
[2018-05-26 12:15] LABS: INR 1.07; PROTIME 14.8 Seconds (11.0-16.0)
[2018-05-26] MEDS: AMPICILLIN 2,000 MG in NS 100 ML IV SCH ×2 (14:21→22:16)
--- NOTE | 2018-05-26 15:56 | INFECTIOUS DISEASE PROGRESS NO ---
DATE: 05/26/2018 PRESENT ILLNESS: The patient has an enterococcal septic knee arthritis with an associated bacteremia and possible pneumonia. She also has oral candidiasis. MEDICATIONS: The patient is on ampicillin 2 g IV every 6 hours. Repeat blood cultures are negative and this happened 2 days ago, therefore ampicillin now this is day #2 of treatment with day #1 of treatment being the first day that the repeat blood cultures are negative. The patient is taking nystatin for her oral candidiasis. PHYSICAL EXAMINATION: Vital Signs: Temperature is 98.6, pulse 83, respirations 18, blood pressure 155/73. General: This is an elderly and ill-appearing female. She is in no acute distress, however. Head, Eyes, Ears, Nose and Throat: She continues to have ptosis of the left eyelid. She can see near objects. She can hear my spoken words. She does not have any white patches on her tongue. Neck: No stiffness. Lungs: Clear to auscultation. Cardiovascular: Heart rate is regular. Thorax: Patient has a pacemaker on the left side. The site is not swollen or tender. Abdomen: Soft and nontender. Neurologic: The patient is slightly sleepy today. She can move her extremities. She is talking without difficulty. She does not have a tremor. LABORATORY AND X-RAY: Repeat blood cultures are sterile, as mentioned above. CBC shows a white count of 12,690, hemoglobin 9.5 and platelet count 363,000. Creatinine is 0.5. GFR is greater than 60. Chest x-ray shows bibasilar opacities. ASSESSMENT AND PLAN: Patient has enterococcal septic knee arthritis with an associated bacteremia and possible pneumonia. She also has oral candidiasis. My plan now is to treat for 6 weeks with IV ampicillin to clear the infection in her knee and her bloodstream infection, and also hopefully clear any infection that might have occurred on her pacemaker while the patient was bacteremic. COMORBIDITIES: The patient is elderly. She has a pacemaker in place. She has gastroesophageal reflux disease and osteoarthritis. cc: Dano Spence MD
--- NOTE | 2018-05-26 17:45 | PROGRESS NOTE ---
DATE: 05/26/2018 SUBJECTIVE: Patient is resting comfortably on a chair. She is not complaining of pain at this moment. Some discomfort at the level of the left knee. Family members at the bedside. The plan is to discharge this patient likely tomorrow. I had a conversation with one of the family members and they are willing to provide IV antibiotics every 6 hours at home. Probably also we need to send this patient home with home health. shellfish bed worker on board. Infectious Disease Department on board, as well. OBJECTIVE: Vital Signs: Temperature 98.7 degrees, pulse 84, respiratory rate 18, blood pressure 134/60. Oxygen saturation 93% on room air. HEENT: Head normocephalic. No trauma. PERRLA. Neck: Supple. No JVD. No masses. Central trachea. Chest: Clear to auscultation. No wheezing. No rales. Abdomen: Soft, nontender, nondistended. No hepatosplenomegaly. Extremities: Left knee is covered with a dressing. No cyanosis. Pulses are present. Neurologic: The patient is alert and oriented x 3. No focal deficits. LABORATORY: WBC 12.6, hemoglobin 9.5, hematocrit 30, platelets 363,000. Sodium 142, potassium 4, chloride 108, bicarbonate 23, BUN 20, creatinine 0.5, glucose 95, calcium 8.5. ASSESSMENT AND PLAN: 1. Bacteremia due to Enterococcal faecalis. This patient will have a PICC line placed today. Will continue with antibiotics per Infectious Disease Department. 2. Septic arthritis, also with a positive culture that showed Enterococcal faecalis, likely the source of the bacteremia. Continue with antibiotics. 3. Oral candidiasis. Continue with same treatment. 4. Right basilar infiltrate, probably pneumonia, but this patient is not complaining of cough or shortness of breath. Continue with the same management. 5. Hypertension, stable. 6. Cardiac dysrhythmia status post pacemaker. Continue to monitor. 7. Generalized anxiety disorder. Continue with home Ativan. 8. Likely pseudogout of the left knee. Continue with colchicine for now. 9. Hypokalemia, resolved. 10. Resuscitation status. This patient is full code. 11. Loose bowel movements. I do believe this is better. Will monitor. 12. Overall, this patient is much better. The plan is to discharge this patient tomorrow. I do believe the family wants to take the patient home and give her the IV ampicillin every 6 hours. If they change their mind, probably will need to send this patient to an LTAC. But so far, she is getting a PICC line and hopefully tomorrow she can go home. cc: Jesse Asher MD
--- NOTE | 2018-05-26 18:15 | PROGRESS NOTE ---
DATE: 05/26/2018 SUBJECTIVE: Ms. Darden is an 87-year-old female who is postoperative day #3 from a left knee arthroscopic lavage. She complains of some soreness in her knee at this time, but overall she is doing well. OBJECTIVE: General: She is a well-developed, well-nourished elderly female. She is alert, oriented and cooperative with the examination. She is in no acute distress. Left Leg: Her left knee incisions are clean, dry and intact. Her left leg is neurovascularly intact. LABS: Her white blood cell count is 12.69, her hemoglobin is 9.5 and her hematocrit is 30. ASSESSMENT: Stable postoperative day #3 from a left knee arthroscopic lavage due to enterococcal septic knee. PLAN: We will have her get up and start working with some physical therapy. We will continue her IV antibiotics per Dr. Spence. Once she is medically stable she can be discharged either home or to rehab. Dictated by LEANNA Angeles for Escobar Wise MD cc: LEANNA Angeles MD
[2018-05-26] MEDS: ATIVAN PO SCH (22:16)
[2018-05-27] MEDS: AMPICILLIN 2,000 MG in NS 100 ML IV SCH ×4 (03:58→20:11)
[2018-05-27 06:16] LABS: BASO# 0.01 X1000 (0.0-0.2); BASO% 0.1 % (0.0-0.8); EOS# 0.03 X1000 (0.0-0.7); EOS% 0.2 % (0.0-10.0); HEMATOCRIT 28.8 % (37.0-47.0); HEMOGLOBIN 8.8 g/dL (12.0-16.0); IMM GRAN# 0.12 X1000 (0.0-0.04); IMM GRAN% 0.8 % (0.0-0.5); LYMPH# 0.82 X1000 (1.2-3.4); LYMPH% 5.5 % (20.5-51.1); MCH 29.7 PG (27-31); MCHC 30.6 g/dL (33-37); MCV 97.3 FL (81-99); MONO# 1.38 X1000 (0.11-0.59); MONO% 9.2 % (1.7-9.3); MPV 8.7 FL (7.4-10.4); NEUT% 84.2 % (42.2-75.2); PLT 361 X1000 (130-400); RBC 2.96 XMIL (4.2-5.4); RDW 13.7 % (11.5-14.5); WBC 14.96 X1000 (4.8-10.8)
[2018-05-27 06:22] LABS: AGAP 10; BUN 16 mg/dL (8-22); CALCIUM 8.2 mg/dL (8.8-10.2); CHLORIDE 109 mmol/L (98-107); COSMO 287; CREATININE 0.5 mg/dL (0.5-0.9); ESTIMATED GFR > 60; GLUCOSE 105 mg/dL (70-104); POTASSIUM 4.2 mmol/L (3.5-5.1); SODIUM 143 mmol/L (136-145); TCO2 24 mmol/L (25-35)
[2018-05-27] MEDS: PRILOSEC PO SCH (06:54)
[2018-05-27] MEDS ORDERED: NS 250 ML ONE (08:58)
[2018-05-27] MEDS: CELEBREX PO SCH (09:00)
[2018-05-27] MEDS: CENTRUM SILVER PO SCH (09:00)
[2018-05-27] MEDS: MYCOSTATIN SUSP PO SCH ×4 (09:00→20:13)
[2018-05-27] MEDS: TOPROL XL PO SCH (09:00)
[2018-05-27] MEDS: COLCRYS PO SCH ×2 (09:00→20:12)
[2018-05-27] MEDS: PERIDEX MT SCH ×2 (09:00→20:12)
[2018-05-27] MEDS: TYLENOL ARTHRITIS PO SCH ×2 (09:00→20:12)
--- NOTE | 2018-05-27 10:11 | PROGRESS NOTE ---
DATE: 05/27/2018 SUBJECTIVE: Ms. Darden was admitted on 05/21/2018 with right lower lobe pneumonia and left knee questionable septic arthritis. She is a patient of Dr. Milagro Tolentino. She is feeling better, and I think they did arthroscopic lavage of the left knee which seems to be healing well. Echocardiogram done on 05/22/2018 showed ejection fraction of 40% to 45% and appeared to have good valvular function. Mild tricuspid regurgitation. She is improving. I think they are looking at whether she should try to go to rehabilitation or possibly going home. OBJECTIVE: General: On exam today, sitting up in a chair, comfortable. Her [id number] was at the bedside. Vital signs: Temperature 98.2 degrees, pulse 88 respirations 16, blood pressure 146/68. HEENT: Pupils are equal. Neck: No distended neck veins. Lungs: Clear in all lung iglesias. Cardiovascular: Regular rhythm and rate without murmur or S3. Abdomen: Soft. Skin: Warm and dry. Output: Urine output is 1600 mL. ASSESSMENT AND PLAN: 1. Status post postoperative day #4 left knee arthroscopic lavage, enterococcal septic knee. Continue present antibiotics. Making good improvement. 2. Septic arthritis. Cultures grew out Enterococcus faecalis, which is likely the source of bacteremia. 3. Oral candidiasis. Continue present treatment. 4. Right basilar infiltrate, probably pneumonia. The patient clinically is improving. 5. Hypertension. 6. Cardiac dysrhythmia status post pacemaker. Continue to monitor. 7. Generalized anxiety disorder. She is on Ativan as needed. Doing well. 8. Likely pseudogout of the left knee. Continue colchicine for now. 9. Hypokalemia. 10. Resuscitation status. Patient is full code. 11. Loose bowel movements, which have improved. Bowels are starting to form. Looking to see about her discharge plans, we will give her IV ampicillin IV q.6 h., and she is going to get a PICC line. cc: Naveed Rushing MD
--- NOTE | 2018-05-27 10:14 | PROGRESS NOTE ---
DATE: 05/27/2018 SUBJECTIVE: Ms. Darden is an 87-year-old female who is postoperative day 4 from a left knee arthroscopic lavage. She has no new complaints. OBJECTIVE: General: She is an well-developed elderly female. She is alert, oriented, and cooperative with examination. She is in no acute distress. Extremities: Her left knee incisions are clean, dry, and intact. Her left leg is neurovascularly intact. LABORATORY DATA: Her white blood cell count is 14.96, hemoglobin is 8.8, her hematocrit is 28.8. Yesterday, she walked 30 feet with physical therapy. ASSESSMENT: Stable postoperative day 4 from a left knee arthroscopic lavage for a left septic knee. PLAN: We will have her continue working with Physical Therapy. We will continue her IV antibiotics per Dr. Spence. Her white blood cell count is elevated from yesterday. We will continue to monitor. Dictated by LEANNA Angeles for Escobar Wise MD cc: LEANNA Angeles MD
[2018-05-27] MEDS: NORCO-5 PO PRN (11:26)
--- NOTE | 2018-05-27 17:50 | Diag Imaging Result Doc PS360 ---
EXAM: CHEST-1 VIEW HISTORY: pneumonia TECHNIQUE: Chest single view COMPARISON: 05/25/2018 FINDINGS: Poor inspiratory effort. Cardiomegaly remains. There are small pleural effusions with basilar atelectasis and infiltrates similar to the prior study. There is a left-sided pacemaker. Interval placement of a right-sided PICC line. The tip overlies the superior vena cava and right atrium. IMPRESSION: No interval improvement. Electronically signed by Hermes Melgar 05/27/2018 5:47 PM
--- NOTE | 2018-05-27 18:08 | INFECTIOUS DISEASE PROGRESS NO ---
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 She also has oral candidiasis. She continues to have leukocytosis. MEDICATIONS: This is the third day of treatment with ampicillin intravenously. The day 1 of treatment is the first day that the patient had negative blood cultures. Patient also is taking nystatin swish and swallow for her oral candidiasis. PHYSICAL EXAMINATION: Vital Signs: Temperature is 98.2 degrees, pulse 88, respirations 16, blood pressure 146/68. Head, Eyes, Ears, Nose and Throat: The patient can hear my spoken words and see near objects. She does not have any white coating on her tongue. Neck: No meningismus. Lungs: Clear to auscultation. Cardiovascular: Heart rate is regular. Thorax: The patient has a pacemaker on the left side. The site is not swollen or erythematous or draining. Abdomen: Soft and nontender. Neurologic: The patient is slightly lethargic but she can move her extremities and she talks coherently. She does not have a tremor. Extremities: The patient's left knee seems to me is getting more swollen. It is fluctuant and the patient states that when she gets on it, it is painful as well. LAB AND X-RAY: There is no new radiographic study. The CBC today shows a white count 14,960, hemoglobin 8.8 and platelet count 361,000. Creatinine is 0.5. GFR is greater than 60. Clostridium difficile antigen and toxin are negative. Repeat blood cultures are sterile. ASSESSMENT AND PLAN: The patient has an enterococcal septic knee arthritis and associated bacteremia and possible pneumonia. I plan to continue with ampicillin. I think that the patient's knee needs to be washed out again in surgery by Dr. Wise. The patient's oral candidiasis is under good control and I plan to continue Mycostatin. I plan to treat the patient for 6 weeks with IV ampicillin to clear the infection in her knee and her bloodstream and also in case the pacemaker became infected hematogenously the IV ampicillin hopefully will cure that. When the patient is done with her IV antibiotic, most likely I will put her on a low dose of amoxicillin such as 250 mg p.o. every 12 hours to try to prevent any of the infection flaring up if there is still some in her, especially if it is on the pacemaker. COMORBIDITIES: She is elderly. She has a pacemaker. She has osteoarthritis and gastroesophageal reflux disease. cc: Dano Spence MD
[2018-05-27] MEDS: ATIVAN PO SCH (20:12)
[2018-05-28] MEDS: AMPICILLIN 2,000 MG in NS 100 ML IV SCH ×4 (02:51→21:11)
[2018-05-28] MEDS: NORCO-5 PO PRN ×2 (05:34→23:20)
[2018-05-28] MEDS: PRILOSEC PO SCH ×2 (05:34→07:12)
[2018-05-28] MEDS: CELEBREX PO SCH (08:11)
[2018-05-28] MEDS: CENTRUM SILVER PO SCH (08:12)
[2018-05-28] MEDS: COLCRYS PO SCH ×2 (08:12→21:11)
[2018-05-28] MEDS: PERIDEX MT SCH ×2 (08:12→21:11)
[2018-05-28] MEDS: TYLENOL ARTHRITIS PO SCH ×2 (08:12→21:11)
[2018-05-28] MEDS: TOPROL XL PO SCH (08:12)
[2018-05-28] MEDS: MYCOSTATIN SUSP PO SCH ×4 (08:12→21:11)
[2018-05-28] MEDS ORDERED: AMIDATE ONE (12:45)
[2018-05-28] MEDS ORDERED: XYLOCAINE-MPF 2% ONE (12:45)
[2018-05-28] MEDS ORDERED: NEOSPORIN G.U. IRRIGANT ONE (12:50)
[2018-05-28] MEDS ORDERED: OFIRMEV 1000 MG/ISOTONIC SOLN 1,000 MG/100 ML BOTTLE ONE (13:40)
--- NOTE | 2018-05-28 13:57 | PROGRESS NOTE ---
DATE: 05/28/2018 SUBJECTIVE: Ms. Darden is feeling better. Her mouth is feeling much better and making some progress. Her chest x-ray from yesterday no interval improvement, poor inspiratory effort, cardiomegaly remains, small pleural effusions with bibasilar atelectasis, infiltrates similar to prior study. Left-sided pacemaker appreciated. Interval placement of right-sided PICC line. EXAMINATION: Vital Signs: Temp 98.3, pulse 83, respirations 16, blood pressure 144/73. HEENT: Pupils are equal and round. Lungs: Clear in all lung iglesias. Cardiovascular: Regular rate without murmur or S3. Abdomen: Soft. Skin: Warm and dry. ASSESSMENT AND PLAN: 1. Enterococcal septic knee arthritis associated with bacteremia, possible pneumonia, also oral candidiasis. This is the fourth day of treatment with ampicillin IV, first day after negative blood cultures. The patient taking nystatin swish and swallow and some Magic mouthwash. Doing much better from that avenue. 2. Septic arthritis and sepsis on presentation, improved. 3. Oral candidiasis. 4. Right basilar infiltrate, suspect pneumonia. 5. Hypertension. 6. Cardiac dysrhythmia, status post pacemaker. 7. Generalized anxiety disorder. 8. Suspect she has pseudogout to the left knee, continue colchicine. 9. Hypokalemia. 10. Resuscitation status: Full code. 11. Loose bowel movements which have improved. 12. Reviewed orders. I do not see any change. cc: Naveed Rushing MD
[2018-05-28] MEDS ORDERED: NS 1,000 ML IV SCH (14:00)
[2018-05-28] MEDS: MORPHINE ONE ×2 (14:10→14:20)
[2018-05-28] MEDS ORDERED: NS 1,000 ML ONE (14:45)
[2018-05-28] MEDS ORDERED: NORCO-5 ONE (14:52)
[2018-05-28] MEDS ORDERED: ZOFRAN ONE (14:56)
--- NOTE | 2018-05-28 15:16 | OPERATIVE NOTE ---
PROCEDURE DATE: 05/28/2018 PREOPERATIVE DIAGNOSIS: Left knee effusion. POSTOPERATIVE DIAGNOSIS: Left knee bloody effusion. PROCEDURE: Left knee arthroscopic lavage. ANESTHESIA: General. SURGEON: Escobar Wise MD. AIR BAG BUILDER: LEANNA Rondon. COMPLICATION: None. BLOOD LOSS: Minimal. DESCRIPTION OF PROCEDURE: The patient brought to the operative suite and placed in supine position. After satisfactory administration of general anesthesia, a well-padded tourniquet was placed on left proximal thigh and left lower extremity was prepped and draped in usual sterile fashion. Previous incisions were used. A trocar was placed in the knee and then was found to have a significant amount of bloody drainage consistent with a hematoma. No evidence of purulent material was obtained. Cultures were obtained and were sent for body fluid analysis. The knee was then copiously irrigated with normal saline containing irrigant for total of 6 L and then 1 L of Bausch irrigation. A drain was placed in the knee and the knee the incisions were closed with nylon and a sterile dressing was applied. The patient tolerated the procedure without complications. At the end of the procedure all counts correct. The patient was transferred to the recovery room in stable condition. cc: Escobar Wise MD Zz Unknown
[2018-05-28 16:01] LABS: BODY FLUID SOURCE SYNOVIAL FLUID
[2018-05-28 16:02] LABS: WBC BF 30.316 /cumm
[2018-05-28 16:48] LABS: MONOS 2 %; POLYS 98 %
--- NOTE | 2018-05-28 17:03 | INFECTIOUS DISEASE PROGRESS NO ---
DATE: 05/28/2018 PRESENT ILLNESS: The patient has an enterococcal septic knee arthritis with an associated bacteremia and possible pneumonia. She also has oral candidiasis and leukocytosis. MEDICATIONS: This is the 4th day of treatment with ampicillin. The patient also is taking nystatin swish and swallow for her oral candidiasis. PHYSICAL EXAMINATION: Vital Signs: Temperature is 100, pulse 98, respirations 12, blood pressure 143/75. General: This is an ill-appearing, elderly female. She is in no acute distress, however. HEENT: She can hear my spoken words and see near objects. She does not have any white coating on her tongue. Neck: No stiffness. Lungs: Clear to auscultation. Cardiovascular: Heart rate is regular. Thorax: The patient has a pacemaker on the left side and there is no swelling or erythema at the site. Extremities: The patient has a PICC in her arm and the site is not erythematous or purulent. The patient's left knee has a large dressing around it. LAB AND X-RAY STUDIES: Cultures from surgery are pending. The patient's chest x-ray shows bibasilar pleural effusions/atelectasis/pneumonia. The patient's synovial fluid white cell count was 30,316. ASSESSMENT AND PLAN: Patient has an enterococcal septic knee arthritis, bacteremia and possible pneumonia. My plan is to continue high-dose ampicillin. Patient also has oral candidiasis for which she is receiving Mycostatin swish and swallow. COMORBIDITIES: The patient is elderly. She has a pacemaker in place. She has osteoarthritis and gastroesophageal reflux disease. cc: Dano Spence MD
[2018-05-28] MEDS: ATIVAN PO SCH (21:11)
[2018-05-29] MEDS ORDERED: NORCO-5 PO ONE (00:56)
[2018-05-29] MEDS: AMPICILLIN 2,000 MG in NS 100 ML IV SCH ×4 (02:30→21:03)
[2018-05-29] MEDS: PRILOSEC PO SCH (06:23)
[2018-05-29 06:38] LABS: BASO# 0.02 X1000 (0.0-0.2); BASO% 0.2 % (0.0-0.8); EOS# 0.06 X1000 (0.0-0.7); EOS% 0.5 % (0.0-10.0); HEMATOCRIT 28.5 % (37.0-47.0); HEMOGLOBIN 8.5 g/dL (12.0-16.0); IMM GRAN# 0.05 X1000 (0.0-0.04); IMM GRAN% 0.4 % (0.0-0.5); LYMPH# 0.96 X1000 (1.2-3.4); LYMPH% 8.2 % (20.5-51.1); MCH 29.7 PG (27-31); MCHC 29.8 g/dL (33-37); MCV 99.7 FL (81-99); MONO# 1.18 X1000 (0.11-0.59); MPV 8.6 FL (7.4-10.4); NEUT# 9.48 X1000 (1.4-6.5); NEUT% 80.7 % (42.2-75.2); PLT 355 X1000 (130-400); RBC 2.86 XMIL (4.2-5.4); RDW 13.9 % (11.5-14.5); WBC 11.75 X1000 (4.8-10.8)
[2018-05-29 06:52] LABS: AGAP 8; BUN 14 mg/dL (8-22); CALCIUM 8.6 mg/dL (8.8-10.2); CHLORIDE 107 mmol/L (98-107); COSMO 280; CREATININE 0.5 mg/dL (0.5-0.9); ESTIMATED GFR > 60; GLUCOSE 103 mg/dL (70-104); POTASSIUM 4.3 mmol/L (3.5-5.1); SODIUM 140 mmol/L (136-145); TCO2 25 mmol/L (25-35)
--- NOTE | 2018-05-29 07:36 | PROGRESS NOTE ---
DATE: 05/29/2018 SUBJECTIVE: Urmila Darden is an 87-year-old female, who is postoperative day 1 from an arthroscopic lavage of her left knee for a hematoma. She has no new complaints. OBJECTIVE: General: She is a well-developed, well-nourished female. She is alert cooperative to exam. Extremities: She has minimal output from her drain. Her dressing is clean, dry and intact. Her leg is neurovascularly intact. ASSESSMENT: Stable left knee after evacuation of hematoma. PLAN: Today, we are going to remove her drain, change her dressing, get physical therapy to work with her. I do not feel that there is any further infection in her knee. She does have severe arthritis, so she may have continued swelling of the knee however. cc: Escobar Wise MD
[2018-05-29] MEDS: MYCOSTATIN SUSP PO SCH ×4 (09:02→21:03)
[2018-05-29] MEDS: PERIDEX MT SCH ×2 (09:02→21:02)
[2018-05-29] MEDS: COLCRYS PO SCH ×2 (09:02→21:03)
[2018-05-29] MEDS: CELEBREX PO SCH (09:02)
[2018-05-29] MEDS: TYLENOL ARTHRITIS PO SCH ×2 (09:02→21:02)
[2018-05-29] MEDS: CENTRUM SILVER PO SCH (09:02)
[2018-05-29] MEDS: TOPROL XL PO SCH (09:02)
[2018-05-29] MEDS: NORCO-10 PO PRN (11:37)
--- NOTE | 2018-05-29 12:55 | PROGRESS NOTE ---
DATE: 05/29/2018 GENERAL: Ms. Darden is feeling better. Her white count has come down. She is eating a little more, feeling a little stronger. OBJECTIVE: Vital signs: Temperature is 97.8 degrees, pulse 97, respirations 16, blood pressure 146/72. Eyes: Pupils are equal and round. Lungs: Clear in all lung iglesias. Cardiovascular: Regular rhythm and rate without murmur or S3. Abdomen: Soft. Skin: Warm and dry. Output: Urine output is 1900 mL. ASSESSMENT AND PLAN: 1. Stable left knee after evacuation of hematoma. 2. Enterococcus septic knee associated with bacteremia and possible pneumonia. She also has oral candidiasis. Her pneumonia seems to be better. White count has come down and so we will continue IV ampicillin, nystatin swish and swallow, and see when we are ready to go to rehabilitation. 3. Review of orders: I do not know that I see anything to change. She is getting ampicillin 2 g IV q.6 h., Celebrex 200 mg a day, Colcrys 0.6 mg b.i.d., Ativan 0.5 mg p.o. q.p.m., metoprolol 25 mg daily extended release, multivitamin 1 a day, nystatin suspension swish and swallow 5 mL 4 times a day, Prilosec 20 mg a day. cc: Naveed Rushing MD
--- NOTE | 2018-05-29 18:21 | INFECTIOUS DISEASE PROGRESS NO ---
DATE: 05/29/2018 PRESENT ILLNESS: Ms. Darden is being treated for enterococcal septic knee arthritis with an associated bacteremia. There is also a possible pneumonia. She also has an oral candidiasis and leukocytosis, both of which are improving. MEDICATIONS: Based on her sterile blood cultures, today is the 5th day of treatment for the bacteremia, with ampicillin 2 g IV every 6 hours. She is also receiving nystatin swish and swallow for the oral candidiasis. PHYSICAL EXAMINATION: Vital Signs: Temperature is 98.2 degrees, pulse rate 86 , respiratory rate 18, blood pressure 144/74, O2 saturation is 88% on room air. General: This is a chronically ill- appearing, elderly female. She is lying in the bed, currently in no acute distress. HEENT: Atraumatic, normocephalic. Oral mucous membranes are erythematous and dry. However, she states her mouth feels better. Conjunctivae are pale. Neck: Supple. Trachea is midline. Cardiovascular: Heart rate and rhythm are regular and a paced rhythm on the monitor. The pacemaker to the left side of her chest is without any edema or erythema. Extremities: She also has a PICC line to the right upper arm without any edema, erythema, or drainage. Her left knee has dressings in place. There is some mild swelling but no erythema noted surrounding the dressings. Respiratory: Lung sounds are clear to auscultation in the upper lobes. Diminished in the bases. Abdomen: Soft, round, and nontender. Bowel sounds are active. Neurologic: She is awake, alert, and oriented. She has been getting up with assistance. Generalized weakness with more weakness noted to the left lower extremity. LABORATORY AND X-RAY: Today her white count is down to 11.75, hemoglobin 8.5, platelet count 355,000. Creatinine is 0.5. Estimated GFR is greater than 60. Left knee cultures are pending from surgery yesterday. Previously she has grown 2 separate enterococcal faecalis in her left knee. Blood cultures have shown no growth, but previously had grown an enterococcal faecalis. No imaging reports today. ASSESSMENT AND PLAN: Ms. Darden is being treated for an enterococcal infection to her left knee with an associated bacteremia and possible pneumonia. She is receiving ampicillin 2 g IV every 6 hours which we will continue. She will need 6 weeks of treatment due to the presence of a pacemaker which could be hematogenously seeded. There is also an oral candidiasis for which she is receiving nystatin swish and swallow which we will also continue. Her leukocytosis continues to improve. We will go ahead and get blood work in the morning to continue to monitor that. We will also check a chest x-ray to see if there is some improvement in her pneumonia. These plans have been discussed with and recommended by Dr. Spence. COMORBIDITIES: For Ms. Darden include that she is elderly with a pacemaker, osteoarthritis, and gastroesophageal reflux disease. Dictated by MT Lanier for Dano Spence MD This chart was documented by, MT Lanier and accurately reflects the services performed, treatment plan and medical decisions as attested by the providers signature Dano Spence MD. cc: Dano Spence MD MTDTorie
[2018-05-29] MEDS: ATIVAN PO SCH (21:02)
[2018-05-30] MEDS: AMPICILLIN 2,000 MG in NS 100 ML IV SCH ×2 (02:45→08:45)
[2018-05-30] MEDS: NORCO-10 PO PRN (05:42)
[2018-05-30] MEDS: PRILOSEC PO SCH ×2 (05:42→06:53)
[2018-05-30 06:31] LABS: AGAP 9; ALB/GLOB RATIO 0.6; ALBUMIN 2.2 g/dL (3.5-5.0); ALKALINE PHOSPHATASE 105 U/L (32-104); BUN 14 mg/dL (8-22); CALCIUM 8.4 mg/dL (8.8-10.2); CHLORIDE 107 mmol/L (98-107); COSMO 284; CREATININE 0.5 mg/dL (0.5-0.9); ESTIMATED GFR > 60; GLUCOSE 98 mg/dL (70-104); GOT 17 U/L (10-30); GPT 5 U/L (10-36); POTASSIUM 4.4 mmol/L (3.5-5.1); SODIUM 142 mmol/L (136-145); TCO2 26 mmol/L (25-35); TOTAL BILIRUBIN 0.23 mg/dL (0.20-1.00); TOTAL PROTEIN 5.8 g/dL (6.3-8.3)
[2018-05-30 06:32] LABS: BASO# 0.01 X1000 (0.0-0.2); BASO% 0.1 % (0.0-0.8); EOS# 0.06 X1000 (0.0-0.7); EOS% 0.5 % (0.0-10.0); HEMOGLOBIN 8.1 g/dL (12.0-16.0); IMM GRAN# 0.05 X1000 (0.0-0.04); IMM GRAN% 0.4 % (0.0-0.5); LYMPH# 0.77 X1000 (1.2-3.4); LYMPH% 6.5 % (20.5-51.1); MCH 29.7 PG (27-31); MCV 98.9 FL (81-99); MONO# 1.14 X1000 (0.11-0.59); MONO% 9.6 % (1.7-9.3); MPV 8.5 FL (7.4-10.4); NEUT# 9.88 X1000 (1.4-6.5); NEUT% 82.9 % (42.2-75.2); PLT 348 X1000 (130-400); RBC 2.73 XMIL (4.2-5.4); RDW 13.8 % (11.5-14.5); WBC 11.91 X1000 (4.8-10.8)
--- NOTE | 2018-05-30 08:22 | PROGRESS NOTE ---
DATE: 05/30/2018 SUBJECTIVE: Urmila Darden is an 87-year-old female who is postoperative day 2 from a repeat arthroscopic lavage of her knee. She has no complaints other than difficulty walking with Physical Therapy. OBJECTIVE: She is a well-developed, well-nourished female. She is alert, oriented, and cooperative. Her leg is neurovascularly intact and her wound is clean, dry, intact. Her cultures so far been negative. ASSESSMENT: Sepsis with cleared left knee infection. PLAN: She can be transferred to rehab when cleared medically. They may wish to wait until the cultures are final from the knee; however, I am okay with going ahead and sending her now if they wish. cc: Escobar Wise MD
--- NOTE | 2018-05-30 08:38 | Diag Imaging Result Doc PS360 ---
CHEST-PORTABLE - 05/30/2018 INDICATION: pneumonia COMPARISON: 05/27/2018 FINDINGS: There has been slight improvement in the pulmonary edema especially in the infiltrates in the lung bases. Stable pacemaker. Stable cardiomegaly. Pulmonary vascularity is grossly normal. Stable right PICC line. Stable moderate bibasilar pleural effusions. IMPRESSION: Improvement in the pulmonary edema and pulmonary vascular congestion. No new abnormality. Electronically signed by Torrey Langford 05/30/2018 8:36 AM
[2018-05-30] MEDS: TOPROL XL PO SCH (08:44)
[2018-05-30] MEDS: CELEBREX PO SCH (08:44)
[2018-05-30] MEDS: COLCRYS PO SCH (08:45)
[2018-05-30] MEDS: PERIDEX MT SCH (08:45)
[2018-05-30] MEDS: MYCOSTATIN SUSP PO SCH (08:45)
[2018-05-30] MEDS: CENTRUM SILVER PO SCH (08:45)
[2018-05-30] MEDS: TYLENOL ARTHRITIS PO SCH (08:45)
--- NOTE | 2018-05-30 14:03 | DISCHARGE SUMMARY ---
ADMISSION DATE: 05/21/2018 DISCHARGE DATE: HISTORY: This is a patient of Dr. Milagro Tolentino who presented on 05/21/2018. She presented with what looked like a right lower lobe pneumonia and left knee questionable septic arthritis. This is an 87-year-old female who carries a Past Medical History of anxiety disorder, cardiac dysrhythmia status post pacemaker, essential hypertension, gastroesophageal reflux disease, who had presented with subjective fever and chills that started several days ago. She went to see her primary care physician which is Dr. Milagro Tolentino for complaints of left knee pain, not being able to walk on her knees since Saturday. She was sent to [facility] for evaluation and concern of septic arthritis. She was seen by Dr. Novoa, and he removed fluid from her knee. Office showed white cell count of 2000, elevated sedimentation rate. They called and spoke to Dr. Novoa who was leaning more toward pseudogout, but not septic arthritis. Secondary to her elevated white count, they sent her for chest x-ray that showed right basilar infiltrate. She was placed on p.o. Levaquin. I was called to let them know that there was something growing in the cultures that showed gram-positive cocci. She did report right upper quadrant pain that was brief in nature, and only occurred one time. It only lasted for a few seconds, it resolved and has not returned. She denied any shortness of breath. No nausea, vomiting, diarrhea, or chest pain. No urinary frequency. No dysuria. She did complain of some slight feelings of constipation secondary to not really having much appetite, not been able to get up and be very mobile. She saw Dr. Dugan, and they were thinking about draining her knee, and came to the hospital. She was admitted with admission diagnosis of right basilar infiltrate, began her on IV antibiotics. #2 Septic arthritis, possible pseudogout. She ended up going for arthroscopic lavage. Infectious Disease was asked to help follow. We did an echocardiogram and did not see any vegetations. They also checked the immunoglobulin level. Originally, they put her on high-dose ampicillin 2 g IV q.6, and felt like she showed some clinical improvement of the left knee though was suspicious. I think she underwent laparoscopic lavage on the . She had left knee arthroscopic lavage, and I think there was some bloody effusion, probably hematoma which was evacuated. She has done well since that time. She did have enterococcal septic knee arthritis associated with bacteremia and possible pneumonia. She improved. Plan was to keep her on antibiotics for several more weeks. She is being treated for enterococcal infection in her left knee which is associated bacteremia and possible pneumonia. She is receiving ampicillin 2 g IV q.6 hours, which she will continue and will need 6 weeks total treatment due to the presence of her pacemaker which could be hematogenously seated. They are also treating her for oral candidiasis and receiving nystatin swish and swallow. Leukocytosis has improved, and felt she could go to rehab today on 05/30/2018. DISCHARGE MEDICATIONS: She will stay on ampicillin 2 g IV q.6 h., Celebrex 200 mg daily p.o., Colcrys 0.6 mg b.i.d., Ridgeley 10 mg q.6 hours p.r.n., Toprol-XL 25 mg a day, Centrum Silver 1 a day, omeprazole 20 mg a day, and Mycostatin suspension 5 mL 4 times a day. cc: Naveed Rushing MD
[2018-05-30 14:06] VITALS: BP 143/70
--- NOTE | 2018-05-30 20:10 | INFECTIOUS DISEASE PROGRESS NO ---
DATE: 05/30/2018 PRESENT ILLNESS: Ms Darden has a septic knee arthritis with an associated enterococcal bacteremia, possible pneumonia, a leukocytosis and oral candidiasis. MEDICATIONS: Based on her sterile blood cultures, today is day 6 of treatment for her bacteremia with ampicillin 2 g IV every 6 hours. She also has a nystatin swish and swallow for the oral candidiasis. PHYSICAL EXAM: Vital Signs: Temperature is 98.1 degrees, pulse rate 84, respiratory rate 16, blood pressure 143/70, O2 saturation is 93% on room air. General: This is an elderly, chronically ill-appearing female. She is sitting up in bed currently in no acute distress. HEENT: Atraumatic, normocephalic. Oral mucous membranes are pink and dry. Conjunctivae are pale. Neck: Supple. Trachea is midline. Cardiovascular: Heart rate and rhythm are regular. Paced rhythm on the monitor. Extremities: There is a PICC to the right upper arm. The site is without edema, erythema or drainage. Left knee dressings are in place with some mild swelling noted to that knee. Respiratory: Lung sounds are clear in the upper lobes diminished in the bases. Abdomen: Soft, round and nontender. Bowel sounds are active. Neurologic: She is awake , alert, and oriented. Generalized weakness more so to the left lower extremity. LABORATORY AND X-RAY: Today her white count is 11.91, hemoglobin 8.1, platelet count 348,000, creatinine is 0.5, estimated GFR is greater than 60, total bilirubin is 0.23, AST 17, ALT 5, alkaline phosphatase 105. Her left knee and blood have both grown Enterococcal faecalis. Chest x- ray today shows improvement in pulmonary edema and pulmonary vascular congestion with no new abnormality. ASSESSMENT AND PLAN: Ms. Darden is being discharged today to [facility], where she will be for 14 to 16 days. We have filled out the order sheet for her to receive the ampicillin 2 g IV every 6 hours and for blood work to be done every Saturday, as well as PICC line care. She will also continue her nystatin swish and swallow for the oral candidiasis. A sales representative graphic art from [facility] has already talked to her about picking her up when she has been discharged home , at which time she will get ampicillin 8 gm per day as a continuous dose through July 05, which is her end of treatment date. She will see us back in the office at 3 weeks and then again in 6 weeks. These plans have been discussed with and recommended by Dr. Spence. COMORBIDITIES: Include that she is elderly with a pacemaker, osteoarthritis and gastroesophageal reflux disease. Dictated by MT Lanier for Dano Spence MD This chart was documented by, MT Lanier and accurately reflects the services performed, treatment plan and medical decisions as attested by the providers signature Dano Spence MD. cc: Dano Spence MD [facility]
== END 2018-05-30 14:57 | DRG 853 ==
LOC: DIRADM 14:03 → SUATTDRO 14:03 → 4N 15:32
PROVIDERS: ATTEND Emergency Medicine
CPT/HCPCS: 36569; 71010; 71020; 71045; 71046; 80048; 80053; 82784; 83735; 84550; 85025; 85610; 85651; 85730; 86140; 86141; 87040; 87070; 87075; 87077; 87186; 87205; 87324; 87449; 89051; 93005; 93010; 93306; 94761; 94799; 97110; 97116; 97162; 97530; A9270; J0131; J0290; J0696; J1100; J2250; J2270; J2405; J2543; J3370; J7030; J7050; S0020